=== PATIENT | female | born 1960 | race Caucasian/White ===

== ENCOUNTER → 2021-06-24 | Day surgery (SDC) | payer OTHER, MEDICAID ==
[2021-06-21 15:20] LABS: BUN 19 mg/dl (7-24); CHLORIDE 110 mmol/L (98-107); POTASSIUM 4.4 mmol/L (3.5-5.1); SODIUM 140 mmol/L (136-145)
[~2021-06-24] VITALS: Ht 167.6 cm; Wt 92.1 kg
[~2021-06-24] MED LIST: LOSARTAN POTASS50 M1 PO; PRAVASTATIN SOD80 MG PO
[2021-06-24 07:30] VITALS: BP 131/45
[2021-06-24 09:20] VITALS: BP 110/69
[2021-06-24 09:35] VITALS: BP 120/86
[2021-06-24 09:51] VITALS: BP 110/68
== END | disposition home or self-care (01) ==
LOC: SDC 06-21 14:00
PROVIDERS: ATTEND Orthopaedic Surgery
DX: M67.431 Ganglion, right wrist (principal); M67.442 Ganglion, left hand; L72.0 Epidermal cyst; I10 Essential (primary) hypertension; E78.00 Pure hypercholesterolemia, unspecified; F17.210 Nicotine dependence, cigarettes, uncomplicated; M19.90 Unspecified osteoarthritis, unspecified site; Z79.899 Other long term (current) drug therapy; Z98.890 Other specified postprocedural states; Z20.822 Contact with and (suspected) exposure to COVID-19